=== PATIENT | female | born 1945 | race American Indian/Alaskan Native ===

== ENCOUNTER 2017-01-03 07:44 | Outpatient (CLI) | payer MEDICARE ==
--- NOTE | 2017-01-03 10:50 | Cat Scan Report ---
CT SINUSES WITHOUT CONTRAST HISTORY: Anosmia, loss of smell. TECHNIQUE: Helical CT images in 1.25 mm intervals. Sagittal and coronal reformatted images. COMPARISON: No relevant comparison. FINDINGS: The maxillary sinuses, sphenoid sinuses and left frontal sinus are normal. The right frontal sinus did not develop. Minimal mucosal thickening is identified in the ethmoid air cells. No evidence for opacification, fluid level or polyposis. No nasal mass. The nasal turbinates are unremarkable. No mary grace bullosa or signs of allergic rhinitis. The ostiomeatal complexes are widely patent bilaterally. The cribriform plate and olfactory lobes are unremarkable on noncontrast CT. No evidence for bony fracture or mass. There is mild deviation of the nasal septum to the left side by 3 mm. Impression: Essentially unremarkable exam of the sinuses. There is minimal chronic mucosal thickening in the ethmoid air cells. The remaining sinuses and cribriform plate region are normal. Aplastic right frontal sinus.
== END 2017-01-03 07:45 | disposition home or self-care (01) ==
LOC: CT 07:44
PROVIDERS: ATTEND Otolaryngology
DX: R43.8 Other disturbances of smell and taste (principal); J34.2 Deviated nasal septum; J34.89 Other specified disorders of nose and nasal sinuses
CPT/HCPCS: 70486

== ENCOUNTER 2018-01-21 15:35 | Emergency (ER) | payer OTHER, MEDICARE ==
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
[2018-01-21 19:58] VITALS: BP 145/81
== END 2018-01-21 19:45 | disposition home or self-care (01) ==
LOC: ED 15:35
DX: R51 Headache (principal); M54.2 Cervicalgia; M25.511 Pain in right shoulder; I10 Essential (primary) hypertension; I50.9 Heart failure, unspecified; K21.9 Gastro-esophageal reflux disease without esophagitis; M19.90 Unspecified osteoarthritis, unspecified site; Z90.711 Acquired absence of uterus with remaining cervical stump; Z95.5 Presence of coronary angioplasty implant and graft; Z88.6 Allergy status to analgesic agent; Z88.8 Allergy status to other drugs, medicaments and biological substances; V49.59XA Passenger injured in collision with other motor vehicles in traffic accident, initial encounter; Y93.89 Activity, other specified; Y99.8 Other external cause status; Y92.89 Other specified places as the place of occurrence of the external cause
CPT/HCPCS: 72040; 93005; 93010; 99283

== ENCOUNTER 2019-06-26 09:37 | Day surgery (SDC) | payer MEDICARE ==
[2019-06-26] MEDS ORDERED: BENZOCAINE 20% TOP SPRAY 0.5 ML UNIT DOSE MM NR (10:00)
[2019-06-26 10:34] LABS: Basophils % (Auto) 0.6 % (0.0-1.8); Eosinophils % (Auto) 1.1 % (0.0-4.3); Hematocrit 37.6 % (30.3-42.9); Hemoglobin 12.2 gm/dl (10.1-14.3); Lymphocytes # (Auto) 1.3 K/mm3 (1.2-5.4); Lymphocytes % (Auto) 35.3 % (13.4-35.0); Mean Corpuscular HGB Conc 32 % (30-34); Mean Corpuscular Volume 92 fl (79-97); Monocytes # (Auto) 0.3 K/mm3 (0.0-0.8); Platelet Count 314 K/mm3 (140-440); Red Blood Count 4.07 M/mm3 (3.65-5.03); Red Cell Distribution Width 16.3 % (13.2-15.2)
[2019-06-26 10:37] LABS: INR 2.72 (0.87-1.13)
[2019-06-26 10:38] LABS: Partial Thromboplastin Time 34.4 Sec. (24.2-36.6)
--- NOTE | 2019-06-26 10:40 | Anesthesia Day of Surgery ---
Anesthesia Day of Surgery - Day of Surgery Patient Examined: Yes Patient H&P Reviewed: Yes Patient is NPO: Yes
--- NOTE | 2019-06-26 10:45 | Anesthesia Consultation ---
Anesthesia Consult and Med Hx Date of service: 06/26/19 - Airway Anesthetic Teeth Evaluation: Good, Partials ROM Head & Neck: Adequate Mental/Hyoid Distance: Adequate Mallampati Class: Class II Intubation Access Assessment: Probably Good - Pre-Operative Health Status ASA Pre-Surgery Classification: ASA3 Proposed Anesthetic Plan: MAC - Pulmonary COPD: Yes - Cardiovascular System Hx Hypertension: Yes (Dilated cardiomyopathy. ECHO [id number] EF .35) Hx Cardia Arrhythmia: Yes (AF) Hx Pacemaker: No Hx Internal Defibrillator: Yes Hx Valvular Heart Disease: Yes (AVR 2004) - Central Nervous System Hx Back Pain: Yes (low back) Hx Psychiatric Problems: No - Endocrine Hx Hypothyroidism: Yes - Other Systems Hx Cancer: No
[2019-06-26] MEDS ORDERED: SODIUM CHLORIDE 0.9% 500 ML 500 ML IV SCH (11:00)
[2019-06-26] MEDS ORDERED: LIDOCAINE MPF (2%) 20 MG/1 ML VIAL 5 ML ONE (11:30)
[2019-06-26] MEDS ORDERED: PROPOFOL 200 MG/20 ML VIAL IV ONE ×2 (11:34)
--- NOTE | 2019-06-26 12:06 | Short Stay Summary ---
Short Stay Documentation Date of service: 06/26/19 - History H&P: obtained from office - Allergies and Medications Current Medications: Allergies aspirin Allergy (Verified 11/16/13 15:37) Nausea lansoprazole [From Prevacid] Allergy (Verified 11/16/13 15:37) Rash nifedipine Allergy (Verified 12/09/14 07:42) Itching Home Medications Medication Instructions Recorded Confirmed Last Taken Type Potassium Chloride [Klor-Con M10] 10 meq PO DAILY 11/16/13 06/26/19 06/25/19 History 10 meq Simvastatin [Zocor TAB] 40 mg PO QHS 03/11/15 06/26/19 06/25/19 History 40 mg Ezetimibe [Zetia] 10 mg PO QDAY 07/13/15 06/26/19 06/25/19 History 10 mg Brimonidine Tartrate [Brimonidine 1 drop INTRAOCULA HS 06/26/19 06/26/19 06/25/19 History Tartrate 0.2%] 1 drop Docusate Sodium [Stool Softener] 50 mg PO BID 06/26/19 06/26/19 06/25/19 History 50 mg Doxazosin [Cardura] 1 mg PO BID 06/26/19 06/26/19 06/25/19 History 1 mg Furosemide [Lasix TAB] 1.5 tab PO DAILY 06/26/19 06/26/19 06/25/19 History 1.5 tab Irbesartan [Avapro] 300 mg PO DAILY 06/26/19 06/26/19 06/25/19 History 300 mg Latanoprost 0.005% 1 drop INTRAOCULA DAILY 06/26/19 06/26/19 06/25/19 History 1 drop Levothyroxine [Synthroid] 50 mcg PO DAILY 06/26/19 06/26/19 06/25/19 History 50 mcg Multivitamin/Iron/Folic Acid 1 tab PO DAILY 06/26/19 06/26/19 06/25/19 History [Centrum Adults Tablet] 1 tab Spironolactone [Aldactone] 25 mg PO DAILY 06/26/19 06/26/19 06/25/19 History 25 mg Warfarin Sodium [Coumadin] 3 mg PO DAILY 06/26/19 06/26/19 06/25/19 History 3 mg carvediloL [Coreg] 25 mg PO BID 06/26/19 06/26/19 06/25/19 History 25 mg raNITIdine HCl [Zantac] 150 mg PO BID 06/26/19 06/26/19 06/25/19 History 150 mg Active Medications Benzocaine (Hurricaine One 20% Topical [place]) 3 spray MM PREOP NR Stop: 06/26/19 13:00 Sodium Chloride (Nacl 0.9% 500 Ml) 500 mls @ 50 mls/hr IV DIRECT KATALINA Last Admin: 06/26/19 10:41 Dose: 50 mls/hr Documented by: - Physical exam General appearance: no acute distress Integumentary: no rash HEENT: Atraumatic Lungs: Clear to auscultation Breasts: deferred Heart: Other Gastrointestinal: normal Female Genitourinary: deferred Rectal Exam: deferred Extremities: no ischemia Neurological: Normal gait - Brief post op/procedure progress note Date of procedure: 06/26/19 Pre-op diagnosis: Afib Post-op diagnosis: same Procedure: OSIEL guided CV Anesthesia: MAC Findings: See report Surgeon: SHAMIKA CORONA Estimated blood loss: none Pathology: none Condition: stable - Hospital course Hospital course: Uneventful - Disposition Condition at discharge: Good Disposition: DC-01 TO HOME OR SELFCARE Short Stay Discharge Plan Activity: advance as tolerated Diet: low fat, low cholesterol, low salt Follow up with: KATE MONTOYA MD [Primary Care Provider] - 7 Days
--- NOTE | 2019-06-26 12:14 | Procedure Note ---
CARDIOVERSION REPORT ORDERING PHYSICIAN: Dr. Naranjo INDICATION: Persistent atrial fibrillation and cardiomyopathy. DESCRIPTION OF PROCEDURE: After obtaining the consent, the patient was deeply sedated with propofol in the presence of anesthesia staff. A left atrial appendage clot was excluded by transesophageal echocardiogram, a 200 joule synchronized shock was administered with successful conversion into normal sinus rhythm. No complications occurred during the procedure. IMPRESSION: Successful conversion from atrial fibrillation to normal sinus rhythm after a 200 joule synchronized shock. RECOMMENDATION: Continue current management. JOB# [id number] ADRIAN/MARIA R
[2019-06-26 13:38] VITALS: BP 133/64
--- NOTE | 2019-06-27 11:01 | Post Anesthesia Evaluation ---
- Post Anesthesia Evaluation Patient Participated: Yes Airway Patent: Yes Stable Respiratory Function: Yes Nausea/Vomiting: No Temp > 96.8F: Yes Pain Manageable: Yes Adequeate Hydration: Yes Anesthesia Complications: No Block Receding Appropriately: Not Applicable Patient on Ventilator: No
== END 2019-06-26 14:00 | disposition home or self-care (01) ==
LOC: CATHLABREC 09:37 → EDSTATUS 10:30 → CATHLABREC 14:00
PROVIDERS: ATTEND Internal Medicine
DX: I48.0 Paroxysmal atrial fibrillation (principal); I42.9 Cardiomyopathy, unspecified; I08.3 Combined rheumatic disorders of mitral, aortic and tricuspid valves; I50.9 Heart failure, unspecified; H40.9 Unspecified glaucoma; I11.0 Hypertensive heart disease with heart failure; E78.00 Pure hypercholesterolemia, unspecified; J44.9 Chronic obstructive pulmonary disease, unspecified; K21.9 Gastro-esophageal reflux disease without esophagitis; E03.9 Hypothyroidism, unspecified; M19.90 Unspecified osteoarthritis, unspecified site; Z79.899 Other long term (current) drug therapy; Z88.6 Allergy status to analgesic agent; Z79.01 Long term (current) use of anticoagulants; Z98.890 Other specified postprocedural states; Z95.2 Presence of prosthetic heart valve; Z90.710 Acquired absence of both cervix and uterus; Z80.0 Family history of malignant neoplasm of digestive organs; Z82.5 Family history of asthma and other chronic lower respiratory diseases; Z82.49 Family history of ischemic heart disease and other diseases of the circulatory system
CPT/HCPCS: 36415; 80048; 85025; 85610; 85730; 92960; 93005; 93010; 93312; 93320; 93325; J2704; J7040